=== PATIENT | male | born 1970 | race Caucasian/White ===

== ENCOUNTER 2017-06-06 19:02 | Emergency (ER) | payer OTHER ==
[~2017-06-06] VITALS: Ht 188 cm; Wt 122.0 kg
[2017-06-06 19:30] VITALS: BP 127/83
[2017-06-06] MEDS ORDERED: Tetracaine 0.5% Opth 4ml Soln RIGHT EYE ONE (19:45)
[2017-06-06] MEDS ORDERED: Fluorescein Strips BOTH EYES ONE (20:15)
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
[2017-06-06] MEDS ORDERED: Morgan Lens TOPIC ONE (21:15)
[2017-06-06] MEDS ORDERED: TYLENOL EXTRA500 MG ORAL (21:34)
[2017-06-06] MEDS ORDERED: OCUFLOX5 ML OP (21:34)
[2017-06-06 22:14] VITALS: BP 132/80
[2017-06-06 22:20] VITALS: BP 132/80
== END 2017-06-06 22:20 | disposition home or self-care (01) ==
LOC: EMR 19:25
DX: T15.02XA Foreign body in cornea, left eye, initial encounter (principal); T15.01XA Foreign body in cornea, right eye, initial encounter; W22.8XXA Striking against or struck by other objects, initial encounter; Y92.89 Other specified places as the place of occurrence of the external cause; Y99.0 Civilian activity done for income or pay
CPT/HCPCS: 65205; 80307; 99284